=== PATIENT | female | born 1960 | race Native Hawaiian/Other Pacific Islander ===

== ENCOUNTER 2020-07-23 16:20 | Inpatient (IN) | payer BC ==
[~2020-07-23] VITALS: Ht 162.6 cm; Wt 78.2 kg
--- NOTE | 2020-07-23 14:20 | NUR ---
RECIEVED REPORT FROM [facility]. PATIENT ON THE WAY TO FACILITY
[2020-07-23 16:45] VITALS: BP 125/37; TEMP 98.9; Ht 162.6 cm; Wt 78.2 kg
--- NOTE | 2020-07-23 17:00 | NUR ---
PATIENT ARRIVED TO FACILITY. PATIENT SITUATED IN ROOM. NAD NOTED. PATIENT FREE OF PAIN AT THIS TIME.
[2020-07-23] MEDS ORDERED: APIX1TAB PO (17:30)
[2020-07-23] MEDS ORDERED: CYCL10TA35 PO (17:30)
[2020-07-23] MEDS ORDERED: SENNA PLUS 50-81 CAP PO (17:33)
[2020-07-23] MEDS ORDERED: GABA400C2 PO (17:33)
[2020-07-23] MEDS ORDERED: OXYC5TAB24 PO (17:36)
[2020-07-23] MEDS ORDERED: ALBU90AE13 INH (17:37)
[2020-07-23] MEDS ORDERED: AZELASTINE HYDR1 SPR NAS (17:39)
[2020-07-23] MEDS ORDERED: BUPROPION HYDR150 M1 PO (17:41)
[2020-07-23] MEDS ORDERED: BECL80AE NAS (17:41)
[2020-07-23] MEDS ORDERED: NEXIUM40 M1 PO (17:42)
[2020-07-23] MEDS ORDERED: ESTRADIOL10 MCG VAG (17:45)
[2020-07-23] MEDS ORDERED: MONT10TA PO (17:46)
[2020-07-23] MEDS ORDERED: LEVO0.1T6 PO (17:46)
[2020-07-23] MEDS ORDERED: BONIVA150 MG PO (17:47)
--- NOTE | 2020-07-23 17:54 | NUR ---
PT WEARING CAST TO L WRIST, LAST CHANGED TODAY BREAD BAKER, LANG PATH THERAPIST <3 SECS. RT LEG IN SPLINT/WRAPPED FROM FOOT TO MID THIGH, WITH EXTERNAL FIXATOR NOTED TO R FOOT, LANG PATH THERAPIST 3 SECS.. HEALING INCISION NOTED TO L HIP, CLEAN, DRY, NO REDNESS OR DRAINAGE NOTED, SECURED WITH DERMABOND, LANG PATH THERAPIST < 3 SECS. BRUISES NOTED TO L MIRELES AND TO RT TOES. PICC REMOVED FROM RT ARM, 29.2CM.
[2020-07-23 20:09] VITALS: BP 113/45; TEMP 99.5
--- NOTE | 2020-07-23 23:05 | NUR ---
PT. COMPLAINS OF PAIN AND BURNING TO RLE AT THIS TIME. PHYSICIAN NOTIFIED AND ORDERED OXYCODONE 5 MG PO X 1 TAB NOW, NOTED AND CARRIED OUT. MEDICATION ADMINISTERED TO PT. WILL MONITOR FOR THERAPEUTIC RESULTS.
--- NOTE | 2020-07-23 23:08 | NUR ---
PT. CALLED FOR ASSISTANCE TO USE THE BEDPAN AT THIS TIME. PT INDEPENDENTLY ROLLED TO RIGHT SIDE. STAFF PLACED BEDPAN UNDER PT. PT HAD A BOWEL MOVEMENT. STAFF PROVIDED SANITARY WIPES FOR PT'S USE FOR SELF CLEANING. STAFF PROVIDED MINIMAL ASSISTANCE IN CLEANING PT.
--- NOTE | 2020-07-24 04:00 | NUR ---
PT. PUT ON BED HARRIS AT THIS TIME WITHOUT DIFFICULTY BY STAFF. PT USES RIGHT ARM AND HAND TO ASSIST WITH TRANSFERRING ON SIDE WHILE BEDPAN IS PLACED BENEATH. ONCE COMPLETED, PROVIDED PT. WITH SANITARY WIPES FOR SELF CLEANING. PT. REPOSITIONED BACK ON RIGHT SIDE AND BEDPAN REMOVED. PT. TOLERATED WELL. NAD NOTED
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
[2020-07-24 08:00] VITALS: BP 93/60; TEMP 98
--- NOTE | 2020-07-24 13:46 | NUR ---
07/24/20 0750 PHYSICAL THERAPY PRESENT IN ROOM TO ASSIST PT OUT OF BED.CC 07/24/20 0826 SPOKE WITH ASAF ABOUT PT REQUESTS FOR MORE COMFORTABLE BED TO HELP ASSIST WITH COMFORT.CC 07/24/20 0820 SPOKE WITH ANGELA IN PHARMACY CONCERNING SOME OF PATIENT MEDICATIONS THAT HAVE BEEN ORDERED BUT NOT AVAILABLE AT THIS TIME.ANGELA STATES THEY SHOULD COME IN TODAY POSSIBLY.ALSO PT MAY BRING ONE FROM HOME.CC 07/24/20 0945 BED IN PT ROOM CHANGED OUT AT THIS TIME.CC 07/24/20 1015 THERAPY ASSISTED PT BACK TO BED PT IS ABLE ONLY TO HELP MINIMAL LEVEL.CC 07/24/20 1300 PT UA COLLECTED PER STERILE TECHIQUE,PT ASKED TO HAVE INDEWLLING CATHERTER PLACED.TOLD HER STATED SHE CAN START HER BACK ON FLOMAX TO HELP WITH URINARY RETENTION.PT IS IN AGREEMENT WITH THIS.ENCOURAGED PT THAT THE MORE SHE MOVES THIS IS THERAPY AND TAHT IS WHAT WE WANT HER TO DO TO GET STRONGER.CC 07/24/20 1320 PHYSICAL THERAPY IN ROOM TO ASSIST PT TO BEDSIDE COMMODE.PT UNABLE TO HELP VERY MUCH.THERAPY TAUGHT HER HOW TO USE SLIDE BOARD ALSO USING DRAW SHEET.CC 07/24/20 1345 THERAPY ASSITED PT BACK TO BED WITH DRAW SHEET AND SLIDE BOARD.CALL LIGHT WITHIN REACH.PT HAD A SOFT STOOL BROWN IN COLOR.CC
--- NOTE | 2020-07-24 15:33 | NUR ---
07/24/20 1515 PT RESTIN QUEITLY WITH EYES CLOSED PER SISTER AT BEDSIDE.NAD NOTED.CALL LIGHT WITHIN REACH.CC
[2020-07-24 20:00] VITALS: BP 123/42; TEMP 98.4
--- NOTE | 2020-07-24 20:19 | NUR ---
PATIENT CALLED A STAFF MEMBER TO HER ROOM FOR CRACKERS. SAME PROVIDED TO PT. PT REPORTED NEED FOR PAIN MEDICINE AT THIS TIME AND STATED "WE NEED TO KEEP THIS UNDER CONTROL." EMAR REVIEWED BY MEDICAL AUDITOR AND PT WAS ADMINISTERED OXYCODONE 5MG 1 TAB @ 1630 ON THIS DATE. PHYSICIANS ORDER REVIEWED. PATIENT WAS ORDERED TO RECEIVE OXYCODONE 5MG 1 TAB PO Q4 PRN HOURS FOR PAIN.
--- NOTE | 2020-07-24 20:31 | NUR ---
PT IN HIGH FOWLERS POSITION REQUESTING CRACKERS AND A DOSE OF PAIN MEDICATION AT THIS TIME. PT'S LOWER EXTERMITIES ELEVATED ON PILLOWS AT THIS TIME, BED IN LOWEST POSITION, AND CALL LIGHT WITHIN REACH.
--- NOTE | 2020-07-25 00:52 | NUR ---
CALLED FOR PAIN MEDICATIONS AT THIS TIME.
--- NOTE | 2020-07-25 02:08 | NUR ---
PT. WET THE BED AT THIS TIME. BED LINENS WERE CHANGED AT THIS TIME.
--- NOTE | 2020-07-25 07:30 | NUR ---
ENTERED PT'S ROOM, PT IS IN HF AWAKE WITH THE LIGHTS OFF. PT IS A&O AND ABLE TO ANSWER QUESTIONS AND GIVE DETAILS ABOUT CURRENT INJURIES. HEART SOUND IS NORMAL SINUS RHYTHM, PULSES ARE FELT IN RUE AND LLE. ELECTRONICS MANUFACTURER CHECKED FOR CAPILLARY REFILL IN LUE AND RLE DUE TO BANDAGES COVERING PULSE SITES, CAPILLARY REFILL WAS <3 SECS. GI SOUNDS ARE PRESENT IN ALL FOUR QUADRANTS. RIGHT LEG IS ELEVATED ON PILLOWS. PT STATED THAT SHE IS NOT CURRENTLY IN PAIN AND DENIES ANY NEEDS AT THIS TIME.
--- NOTE | 2020-07-25 07:45 | NUR ---
PT ASKED FOR A CUP OF WATER AND HER TOOTHBRUSH AND TOOTHPASTE. AFTER RECIEVING THE ITEMS, PT BRUSHED HER TEETH WITHOUT ANY ASSISTANCE. SUCKER MACHINE OPERATOR GAVE PT TWO WASHCLOTHS, ONE WET AND ONE DRY. PT WASHED HER FACE WITHOUT ANY ASSISTANCE.
[2020-07-25 08:00] VITALS: BP 108/45; TEMP 98.8
--- NOTE | 2020-07-25 08:50 | NUR ---
PT CAME INTO PT'S ROOM, PT ASKED FOR MORPHOLOGIST TO COME TO PT'S ROOM TO OBSERVE THE TRANSFER. PT WAS TRANSFERED FROM THE BED TO THE BEDSIDE COMMODE USE THE SLIDING BOARD. PT SLID TO THE BEDSIDE COMMODE WITH VERY LITTLE ASSISTANCE MORPHOLOGIST HELD HER RT LEG ELEVATED. PT VOIDED 500ML OF URINE. PT TRANSFERRED BACK TO THE BED FROM THE BEDSIDE COMMODE USING THE SLIDING BOARD WITH NO PHYSICAL ASSISTANCE FROM PT JUST SUPERVISION.
--- NOTE | 2020-07-25 11:12 | NUR ---
Patient expressed concern earlier this morning about her ability to tolerate transport to [place] and back on Thursday07/27/[address] appointment [address] Dr. Parry. Offered to call the phone number provided for the physician in the discharge orders to discuss options. Called and spoke to "Tracey", relayed message from patient. Tracey is communicating with Dr. Parry's medical scheduler to see if it is absolutely necessary for patient to go to the appointment in [place] on Thursday or if the doctor would be agreeable to a change of plans. The patient stated that she is stronger today than she was yesterday and possibly could tolerate the visit better if it was rescheduled for the following week. Also asked if the physician would be agreeable to a telehealth visit with her or did he specifically need to see her in person for follow-up. Asked if it would be possible for them to ask Dr. Parry if this center can coordinate her post-op care with him so that the patient doesn't have to travel to [place] right now as it causes her pain to do so. Tracey stated that someone would call us back shortly with a response from Dr. Parry. or would the physician agree to a telehealth visit or speak to physician at this center
--- NOTE | 2020-07-25 11:50 | NUR ---
PT CALLED TO NURSE'S STATION EXPRESSING SHE WAS IN PAIN. RESIDENTIAL YOUTH COUNSELOR WENT TO BEDSIDE WHERE PT WAS LAYING IN LF WITH FACE GRIMACING. PT STATED THAT HER RT LEG AND RIB CAGE WERE BURNING WITH PAIN. PT RATED THE PAIN ON A SCALE OF 0-10 A 9. WAS NOTIFIED AND ORDERS WERE GIVEN TO GIVE THE PRN DOSE OF FLEXARIL, IF THAT DOES NOT WORK ANOTHER ORDER WILL BE PUT IN. PRN DOSE WAS GIVEN AND PT INSTRUCTED TO WAIT A LITTLE WHILE AND IF PAIN DOES NOT EASE UP TO CALL.
--- NOTE | 2020-07-25 12:30 | NUR ---
AN ORDER FOR KETOROLAC 20MG HAS BEEN PUT IN. WENT TO ROOM TO ADMINISTER KETOROLAC, PT IS IN WHEELCHAIR EATING LUNCH. TWO VISITORS ARE AT BEDSIDE. RN ADMIT OBSERVED PT SWALLOWING KETOROLAC WITHOUT ANY DIFFICULTY. NO FURTHER ORDERS AT THIS TIME, WILL CONTINUE TO MONITOR.
--- NOTE | 2020-07-25 15:30 | NUR ---
PT REQUESTED TO BE PUT ON THE BEDPAN. PT WAS PLACED ON THE BEDPAN BY JORGE COBURN CNA. VOIDED 500ML AND HAD SEMI SOLID BM. PT ROLLED WITH NO ASSISTANCE TO BE PLACED ON THE BEDPAN.
--- NOTE | 2020-07-25 17:03 | NUR ---
PT CALLED NURSES STATION REQUESTING A NURSE DUE TO PAIN IN THE RT LEG. PRN DOSE OF FLEXARIL WAS GIVEN. PT WAS EDUCATED THAT SHE CANNOT HAVE PRN OXYCODONE OR PRN KETOROLAC UNTIL AROUND 1800, PT VERBALIZED UNDERSTANDING.
[2020-07-25 20:05] VITALS: BP 125/49; TEMP 98.6
--- NOTE | 2020-07-25 20:22 | NUR ---
ENTERED PATIENT'S ROOM AT THIS TIME. PATIENT SITTING UP IN BED ON LABTOP. TWO VISITORS IN THE ROOM WITH PATIENT. SHE STATES THAT SHE IS OKAY FOR NOW. RESPIRATIONS EVEN AND UNLABORED. NAD NOTED. BED LOCKED AND IN LOWEST POSITION. CALL LIGHT WITHIN EASY REACH.
--- NOTE | 2020-07-25 21:00 | NUR ---
PATIENT RESTING QUIETLY IN BED AT THIS TIME. PM MEDICATIONS GIVEN. THE PATIENT ASKED WHAT SHE WAS TAKING MULTIPLE TIMES. SHE ALSO HAD ME REPEAT THE MEDICATIONS GIVEN TO HER MULTIPLE TIMES. SHE STATES THAT SHE DOES NOT TAKE THE SINGULAIR ON A DAILY BASIS AND REFUSED IT, ALONG WITH HER NASAL SPRAY. TORADOL WAS OFFERED AT THIS TIME- PATIENT DID TAKE THIS. SHE RATED HER CURRENT PAIN 1/10. SHE WAS REQUESTING TO WASH OFF. STATES SHE FEELS STICKY AND SWEATY. I INFORMED HER THAT I WOULD NEED TO GET WITH OUR PCT TO SEE WHEN SHE COULD HELP HER. SHE VERBALIZED UNDERSTANDING. CALL LIGHT WITHIN EASY REACH.
--- NOTE | 2020-07-25 22:10 | NUR ---
IN WITH PCT TO HELP PATIENT WITH BED BATH. PATIENT STATES THAT SHE NEEDS TO HAVE HER PAIN MEDICATION PRIOR TO HAVING A BED BATH. OXYCODONE 5MG GIVEN. BED BATH PERFORMED. LEFT ARM AND RIGHT LEG WRAPPED WITH PLASTIC TO PREVENT WATER FROM DAMAGING MATERIAL. EXTENSIVE ASSISTANCE REQUIRED. PATIENT DID HELP WHEN ABLE. GOWN AND LINENS CHANGED. BED LOCKED AND IN LOWEST POSITION. CALL LIGHT WITHIN EASY REACH.
--- NOTE | 2020-07-26 06:20 | NUR ---
PATIENT RESTING QUIETLY IN BED WITH EYES CLOSED. RLE ELEVATED. RESPIRATIONS EVEN AND UNLABORED. NAD NOTED. 0700 MEDICATIONS TAKEN, INCLUDING OXYCODONE 5MG. NO OTHER CONCERNS OR COMPLAINTS VOICED. BED LOCKED AND IN LOWEST POSITION. CALL LIGHT WITHIN EASY REACH.
[2020-07-26 08:00] VITALS: BP 100/40; TEMP 98
--- NOTE | 2020-07-26 08:00 | NUR ---
PT IS IN LF WITH LIGHTS AND TV OFF, RESTING WITH EYES CLOSED. PT LUNG SOUNDS ARE CLEAR, BREATHING IS EVEN AND NONLABORED. HEART SOUNDS ARE REGULAR AT NORMAL SINUS RHYTHM. PULSES WERE PALPATED IN RUE AND LLE. CAPILLARY REFILL IS <3 SEC IN ALL EXTREMITIES. PT DENIES PAIN OR ANY NEEDS AT THIS TIME.
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
--- NOTE | 2020-07-26 14:10 | NUR ---
PHYSICAL THERAPY IS IN PT'S ROOM. PT HAS BEEN SITTING IN THE WHEELCHAIR FOR 30 MINS. PT WAS TRANSFERRED FROM WHEELCHAIR TO BED USING SLIDING BOARD AND SHEET. 2 MAN ASSIST WAS USED FOR THE TRANSFER. PT DENIES ANY PAIN OR NEEDS AT THIS TIME.
--- NOTE | 2020-07-26 19:50 | NUR ---
ENTERED PATIENT'S ROOM AT THIS TIME. PATIENT RESTING QUIETLY IN BED WATCHING TV. RESPIRATIONS ARE EVEN AND UNLABORED. ENCOURAGED HER TO KEEP RLE AND LUE ELEVATED. MOVE TOES AND FINGERS FREQUENTLY. SHE STATES THAT THE PAIN IN HER RIGHT FOOT IS STARTING TO RETURN AT THIS TIME. I INFORMED HER THAT I WOULD BRING SOMETHING FOR PAIN. NO OTHER CONCERNS VOICED. BED LOCKED AND IN LOWEST POSITION. CALL LIGHT WITHIN EASY REACH.
[2020-07-26 20:08] VITALS: BP 112/35; TEMP 98.3
--- NOTE | 2020-07-26 20:22 | NUR ---
2021- IN TO GIVE PATIENT PM MEDICATIONS, INCLUDING TORADOL. 2099- WHILE GIVING PM MEDICATIONS, A BOX OF MUCINEX WAS ON PATIENT'S BEDSIDE TABLE. I ASKED PATIENT ABOUT THIS. SHE STATES THAT SHE TAKES IT ON AN -NEEDED BASIS FOR CONGESTION. I EXPLAINED TO HER THAT PER OUR POLICY, PATIENT'S ARE NOT TO HAVE MEDICATIONS IN THE ROOM. THIS COULD LEAD TO TAKING TOO MUCH OF THE SAME MEDICINE OR POSSIBLE INTERACTIONS. INFORMED HER THAT I WOULD NEED TO LABEL IT AND PUT IT IN OUR MED ROOM UNTIL SHE IS DISCHARGED. I DID TELL HER ALSO THAT I WOULD PASS THIS ON TO THE NEXT SHIFT, SO THEY COULD TALK TO THE HOSPITALIST ABOUT ORDERING THIS PRN. SHE STATES, "WELL IF YOU JUST PUT IT IN MY BAG OVER THERE, YOU CAN ACT LIKE YOU DIDN'T SEE IT." I TOLD HER THAT I COULDN'T DO THAT. I AGAIN EXPLAINED TO HER THAT THIS IS A POLICY FOR ALL PATIENTS, AND THE MD MAY BE WILLING TO ORDER IT FOR HER TOMORROW. SHE WAS UPSET BUT DID VERBALIZE UNDERSTANDING. MUCINEX LABELED WITH PATIENT'S STICKER AND PLACED IN MED ROOM.
--- NOTE | 2020-07-27 05:15 | NUR ---
IN TO CHECK ON PATIENT. SHE IS RESTING QUIETLY IN BED WITH EYES CLOSED. ENCOURAGED HER TO USE THE BEDPAN- SHE STATES THAT SHE DOES NOT FEEL THE URGENCY TO GO RIGHT NOW. 900CC OF DARK YELLOW URINE NOTED. SHE DENIES PAIN AT THIS TIME, BUT SHE DOES WANT PAIN MEDICATION WITH HER 0700 MEDS. BED LOCKED INTO LOWEST POSITION. CALL LIGHT WITHIN EASY REACH.
--- NOTE | 2020-07-27 06:15 | NUR ---
IN TO GIVE 0700 MEDS. NO OTHER CONCERNS VOICED FROM PATIENT. SHE IS RESTING QUIETLY IN BED WATCHING TV. NAD NOTED. CALL LIGHT WITHIN EASY REACH.
[2020-07-27 08:00] VITALS: BP 122/45; TEMP 98.3
--- NOTE | 2020-07-27 16:49 | NUR ---
PATIENT HAS AN APPT ON ThursdayJULY 30, AT 10:30AM IN [place]. LARRY WILL BE HERE AROUND 8:15 AM TO PICK THE PATIENT UP FOR APPOINTMENT.
--- NOTE | 2020-07-27 19:45 | NUR ---
AT PT'S BEDSIDE AT THIS TIME. PT IS SITTING UP IN A LOW FOWLERS POSITION AT THIS TIME AND IS RESPONSIVE TO VERBAL STIMULI. NAD NOTED AT THIS TIME. CALL LIGHT WITHIN REACH AND BED LOCKED IN LOWEST POSITION WITH SIDE RAILS UP TIMES TWO.
[2020-07-27 20:10] VITALS: BP 119/52; TEMP 98
--- NOTE | 2020-07-27 20:34 | NUR ---
PT COMPLAINS OF BURNING RIGHT LOWER EXTREMITY PAIN AT THIS TIME. PRN MED TORADOL 10 MG GIVEN AT THIS TIME. WILL FURTHER ASSESS FOR MEDICATION EFFECTIVNESS ACCORDINGLY.
--- NOTE | 2020-07-27 21:20 | NUR ---
IN TO GIVE PM MEDS AT THIS TIME. PT. TOLERATED WELL. NAD NOTED AT THIS TIME. EDUCATED ON IMPORTANCE OF INCENTIVE SPIROMETER USAGE. PT VERBALIZED UNDERSTANDING AND GOT UP TO 2500.
--- NOTE | 2020-07-28 03:30 | NUR ---
PT IS SLEEPING QUIETLY AND COMFORTBALY AT THIS TIME WITH SIDE RAILS UP, BED IN LOWEST POSITION, RIGHT LOWER EXTERMITY ELEVATED WITH CALL LIGHT WITHIN REACH AT THIS TIME. NAD NOTED.
[2020-07-28 08:00] VITALS: BP 110/38; TEMP 98
--- NOTE | 2020-07-28 08:51 | NUR ---
ASSISTED PT WITH GETTING OFF OF THE BEDPAN, PT TURNED HERSELF TO THE RT WITH NO ASSISTANCE, BEDPAN REMOVED, I ASSISTED PT WITH WIPING, PT THEN MANUEVERED HERSELF AND HER HOB BACK TO REGULAR POSITION, NAD NOTED, PT HAS NO FURTHER NEEDS AT THIS TIME, WILL CONTINUE TO MONITOR, CALL LIGHT IS WITHIN REACH
--- NOTE | 2020-07-28 12:59 | NUR ---
Swing Bed patient and talked with Shahnaz yesterday about the patient and per the patient is pleased with all meals. Patient is to go to [place] and discussed the traveling issues. Maya PAGE's recommendations nad POC. Talk weekly with the Care Plan Team.
[2020-07-28 20:00] VITALS: BP 104/67; TEMP 98.4
[2020-07-28 20:46] VITALS: BP 101/41; TEMP 98.5
--- NOTE | 2020-07-28 21:25 | NUR ---
IN TO GIVE PM MEDS AT THIS TIME. PT TOERATED WELL IN A HIGH FOWLERS POSITION WITH BED IN LOWEST POSITION AND RIGHT LOWER EXTREMITY ELEVATED. PT USED INCENTIVE SPIROMETER AND PT WAS ABLE TO GET UP TO 2000 ON THE VOLUME.
--- NOTE | 2020-07-28 22:12 | NUR ---
PT. COMPLAINS OF RIGHT LOWER EXREMITY PAIN. OXYCODONE 5 MG GIVEN AT THIS TIME.
--- NOTE | 2020-07-29 04:20 | NUR ---
PT IS RESTING QUIETLY IN SUPINE POSITION WITH BED IN THE LOWEST POSITION AND SIDE RAILS UP TIMES TWO AND RIGHT LOWER EXTREMITY ELEVATED.
[2020-07-29 08:00] VITALS: BP 113/35; TEMP 98.5
--- NOTE | 2020-07-29 08:30 | NUR ---
PT'S TRAY WAS BROUGHT IN. PT IS ABLE TO SET UP HER OWN TRAY. PT NEEDED ASSISTANCE IN OPENING MILK CARTON AND ENSURE BOTTLE. PT ALSO STATED THAT WITH HER MORNING MEDS SHE DID NOT WANT THE MULTIVITAMIN INCLUDED BECAUSE IT MADE HER FEEL SICK YESTERDAY. PT WAS EDUCATED ON THE IMPORTANCE TO EAT WHEN TAKING MEDICATIONS BECAUSE THEY CAN IRRITATE THE STOMACH OTHERWISE.
--- NOTE | 2020-07-29 09:31 | NUR ---
ENTERED PT'S ROOM FOR MORNIGN ASSESSMENT. PT IS RESTING IN LF. HEART SOUNDS ARE PRESENT AND NORMAL SINUS RHYTHM. LUNG SOUNDS ARE CLEAR IN ALL LOBES. PT STATED THAT SHE CAN GET THE INCENTIVE SPIROMETER TO AT LEAST 2500. PULSES WERE PALPATED IN THE RUE AND LLE. CAPILLARY REFILL WAS CHECKED IN THE LUE AND RLE, BOTH WERE <3 SECS. GASTRIC SOUNDS WERE PRESENT IN ALL FOUR QUADRANTS. PT DENIES ANY PAIN OR NEEDS AT THIS TIME.
--- NOTE | 2020-07-29 10:00 | NUR ---
PT CALLED TO BE PUT ON THE BEDPAN. PT ASSISTED WITH BEING PUT ON THE BEDPAN, ABLE TO GRAB ONTO THE SIDERAIL WITH LEFT ARM TO ROLL. PT HAD A SMALL BM AND VOIDED 1000 ML OF URINE.
--- NOTE | 2020-07-29 13:29 | NUR ---
ASSISTED PT ONTO BEDPAN. PT ABLE TO ROLL USING LEFT ARM TO HOLD ONTO SIDERAIL. PT CAN ALSO LIFT HIPS USING LT LEG. PT VOIDED 650 ML OF URINE AND HAD A BM.
--- NOTE | 2020-07-29 19:55 | NUR ---
PT. IS IN A LOW-FOWLERS POSITION WITH SIDE RAILS UP TIMES TWO AND RIGHT LOWER EXTREMITIES FLOATED AND ELEVATED AT THIS TIME WITH CALL LIGHT WITHIN REACH.
[2020-07-29 20:19] VITALS: BP 105/40; TEMP 98.2
--- NOTE | 2020-07-29 21:25 | NUR ---
PM MEDS GIVEN AT THIS TIME. TORADOL PRN MEDICATION ALSO GIVEN AT THIS TIME BECAUSE PT COMPLAINED OF RIGHT LOWER EXTREMITY PAIN. PT RESPONDS WELL TO VERBAL STIMULI AT THIS TIME AND EDUCATED PT. ON MEDICATION LIST. CALL LIGHT WITHIN REACH.
--- NOTE | 2020-07-29 22:37 | NUR ---
OXYCODONE 5 MG GIVEN AT THIS TIME FOR RIGHT LOWER EXTREMITY PAIN
[2020-07-30 05:19] LABS: POTASSIUM 4.2 mmol/L (3.6-5.2)
[2020-07-30 08:00] VITALS: BP 120/45; TEMP 97.9
--- NOTE | 2020-07-30 08:43 | NUR ---
OXYCODONE 5MG AND CYCLOBENZAPRINE 10 MG WAS GIVEN TO PT'S SISTER BY PROGRAM MANAGER RN TO TAKE TO DOCTOR'S APPT IN [place] FOR PAIN PRN. PROGRAM MANAGER RN RECIEVED THE OK BY DR. CASANOVA TO DO SO.
[2020-07-30 20:00] VITALS: BP 113/42; TEMP 98.8
--- NOTE | 2020-07-30 22:53 | NUR ---
PT RESTING IN HIGH FOWLERS AT THIS TIME WITH NO DISTRESS PRESENT. ALERT AND ORIENTED WITH C/O MILD PAIN PRESENT. PRN MEDICATION GIVEN TO ALLEVIATE PAIN, WILL CONTINUE TO MONITOR FOR HEALTH STATUS CHANGES.
[2020-07-31 07:55] VITALS: BP 112/48; TEMP 98.5
--- NOTE | 2020-07-31 09:21 | NUR ---
I called pts ortho Dr. Parry [phone] this am to see if they had the "pin care sheet" that the prescriptions of supplies for the wound care referred to. I did ask patient if she had any additional paperwork from her appointment yesterday, she stated she would ask her sister, Rebeca, who was not present at this time. Dr. Parry's offie stated they would email the medical assistant dermatology and she would check with Dr. Parry because his progress note was not available yet. I gave her my office number and fax and asked her to call the nurses station x [phone] if i did not answer the phone.
[2020-07-31 20:00] VITALS: BP 114/41; TEMP 98.7
--- NOTE | 2020-07-31 20:42 | NUR ---
NIGHTLY PO MEDS GIVEN PT TOLERATED WITH NO PROBLEMS BUT DID NOT WANT SINGULAIR STATES SHE ONLY TAKES IT EVERY OTHER NIGHT THAT IT 'DRIES ME OUT TOO MUCH". DRANK PROTEIN SUPPLEMENT WITH ORANGE JUICE PER REQUEST. ASSISTED PT TO ROLL TO R SIDE AND GET ON BEDPAN. PT URINATED 400ML CLEAR YELLOW URINE, PT DID HOLD RAILS WHEN ROLLING AND ROLLED TO SIDE WITH NO ASSIST CROCHET MACHINE OPERATOR HAD TO JUST PLACE BEDPAN THEN ONCE FINISHED PT WIPED HER FRONT PER SELF THEN CROCHET MACHINE OPERATOR WIPED PT BOTTOM, ADJUSTS HOB PER SELF AND IS NOW IN HIGH CHESTER'S POSITION IN BED. STATES HER PAIN IS DOING BETTER SINCE PRN MEDICATION GIVEN, NO S/S OF PAIN OR DISTRESS NOTED, ENCOURAGED TO CALL NEEDED, CALL LIGHT IN REACH, BED IN LOW POSITION, RAILS UP. PT TALKATIVE WITH CROCHET MACHINE OPERATOR.
--- NOTE | 2020-07-31 21:00 | NUR ---
TOOK PT'S HOME MED IBANDRONATE 150MG TAB(1 INDIVIDUALLY WRAPPED TAB LEFT IN BOX LABLED WITH PT'S NAME AND DRUG INFO) PLACED AT BEDSIDE, PT STATES SHE IS DUE FOR PILL(USUALLY TAKES OR 16 OF MONTH) BUT HAD TO WAIT ON FAMILY TO BRING MEDICATION TO HOSPITAL. BOX WITH PILL GIVEN TO PRIVATE CLIENT ADVISOR AT SHIFT CHANGE BY DAY SHIFT NURSE WHO INFORMED IT COULD BE KEPT AT BEDSIDE. INFORMED PT PRIVATE CLIENT ADVISOR WOULD HAVE TO SEE IF ORDER FOR MED EXISTED AND FOR HER TO HOLD OFF ON TAKING MEDICATION(STATES WANTS TO TAKE MED IN MORNING ON EMPTY STOMACH LIKE SHE DOES ONCE MONTHLY AT HOME). INFORMED PT TO PRIVATE CLIENT ADVISOR LOOK INTO MEDICATION ORDER BEFORE GIVING IT. PT ACKNOWLEDGES UNDERSTANDING.
--- NOTE | 2020-07-31 22:30 | NUR ---
PT AWAKE TALKING ON PHONE WITH FAMILY, DENIES ANY NEEDS, WILL MONITOR CLOSELY, RAILS UP, CALL LIGHT IN REACH.
--- NOTE | 2020-08-01 01:15 | NUR ---
RESTING IN POSITION OF COMFORT IN BED WITH EYES CLOSED, NO S/S OF PAIN OR DISTRESS NOTED, CAST INTACT TO L ARM, R LEG ON PILLOW, WILL MONITOR CLOSELY, RAILS UP X3, CALL LIGHT IN REACH.
--- NOTE | 2020-08-01 02:50 | NUR ---
GIVEN OXYCODONE 5MG PO PRN FOR C/O INTERMITTEN PAIN TO R KNEE AND HEEL THAT IS A "5 OR 6" ON SCALE. STATES BRACE THAT WAS PLACED BACK ON HER R LEG DID HELP WITH PAIN SOME(PUT ON PT ON DAY SHIFT). WILL MONITOR CLOSELY, RAILS UP, BED IN LOW POSITION, CALL LIGHT IN REACH, ENCOURAGED TO CALL NEEDED.
--- NOTE | 2020-08-01 02:52 | NUR ---
PT AWAKE CALLED FOR ASSIST TO GET ON BEDPAN. NO ACUTE DISTRESS NOTED.
--- NOTE | 2020-08-01 03:30 | NUR ---
PT CALLED FOR PRN PAIN MEDICATION. C/O CONSTANT "THROBBING" PAIIN TO R KNEE THAT IS A "5 OR 6" ON SCALE. OXYCODONE 5MG PLACED IN MED CUP TO GIVE TO PT MARBLE AND GRANITE POLISHER ACCIDENTLY DROPPED MEDICATION ON FLOOR, CHARGE NURSE NIC FUNES RN WITNESSED MARBLE AND GRANITE POLISHER WASTE PILL AND GET ANOTHER PILL. PT GIVEN MED AT 0334, DENIES ANY OTHER NEEDS OR NEED TO HELP REPOSITION IN BED. WILL MONITOR CLOSELY, RAILS UP, BED IN LOW POSITION, CALL LIGHT IN REACH.
--- NOTE | 2020-08-01 04:15 | NUR ---
RESTING WITH EYES CLOSED, NO S/S OF PAIN OR DISTRESS NOTED, WILL MONITOR.
--- NOTE | 2020-08-01 05:30 | NUR ---
SPOKE WITH PHARM-D ABOUT PT'S HOME MED IBANDRONATE 150MG THAT PT TAKES MONTHLY AROUND 15TH OR 16TH PER PT, PT ALSO STATES SHE NEEDS MED FOR THIS MONTH. INFORMED PHARM-D WAS ORDER FOR MED ON 07/24/20 BUT NANNY/HOUSEHOLD MANAGER THOUGHT MEDICATION WAS NOT AVAILABLE FROM HOME AT THAT TIME AND NOW MED IS AVAILABLE. PHARM-D STATES TO NOT GIVE MED AND THEY WILL LEAVE NOTE FOR REMOTE PHARMACY. 0630 ENTERED ROOM TO TALK WITH PT ABOUT HOME MED IBANDRONATE AND TO EXPLAIN WHAT PHARM-D ADVISED. PT STATES SHE HAD JUST TAKEN MEDICATION. MEDICATION WAS LAST PILL IN BOX WITNESSED BY NANNY/HOUSEHOLD MANAGER AND DAY SHIFT YESTERDAY. NANNY/HOUSEHOLD MANAGER ADVISED DURING REPORT LAST NIGHT BY 7AM-7PM NURSE THAT MED COULD BE KEPT AT BEDSIDE AND NANNY/HOUSEHOLD MANAGER GIVEN LABELED BOX WITH MED IN IT(INDIVIDUAL PILL IN FOIL PACKAGE INDIVIDUALLY WRAPPED). CHARGE NURSE INFORMED.
[2020-08-01 08:00] VITALS: BP 132/47; TEMP 97.9
--- NOTE | 2020-08-01 08:50 | NUR ---
PT AT BEDSIDE. PATIENT REFUSED TO BE TRANSFERRED TO WHEELCHAIR. SHE STATED THAT SHE WAS TOO COLD. WE ADJUSTED THE TEMP OF HER ROOM. WE ASSURED HER THAT WE COULD COVER HER WITH BLANKETS IN THE WHEELCHAIR. PATIENT STILL REFUSED AND ASKED PT TO COME BACK LATER. CASE MANAGEMENT NOTIFIED.
--- NOTE | 2020-08-01 10:00 | NUR ---
PATIENT CALLED FOR PAIN MEDICATION. PATIENT STATED THAT PAIN WAS AN 8 OUT OF 10. PRN OXYCODONE GIVEN PER MD ORDERS.
--- NOTE | 2020-08-01 10:30 | NUR ---
PATIENT REQUESTING TO USE BEDPAN. PATIENT VOIDED AND HAD A BOWEL MOVEMENT. PATIENT TOLERATED TRANFER ON AND OFF BEDPAN WELL.
--- NOTE | 2020-08-01 12:22 | NUR ---
PT AT BEDSIDE. PT TRANSFERRED TO WHEELCHAIR. PT WHEELED PATIENT OUTSIDE.
--- NOTE | 2020-08-01 16:48 | NUR ---
TVO RECEIVED TO REMOVE 4 SUTURES FROM PATIENT'S UPPER RIGHT LOWER EXTREMITY. SITE CLEANED WITH NORMAL SALINE. 4 SUTURES REMOVED WITH SITE INTACT. SITE CLEANED WITH NORMAL SALINE. NAD NOTED AND PATIENT TOLERATED WELL. WILL CONTINUE TO MONITOR SITE FOR INFECTION.
--- NOTE | 2020-08-01 20:05 | NUR ---
AT PT'S BEDSIDE. PT REQUESTED TO USE THE BEDSIDE HARRIS. PT HAD A MODERATE FORMED BOWEL MOVEMENT AT THIS TIME IN THE BEDPAN. PT ALSO REQUESTED PRN PAIN MEDICATION DUE TO RIGHT LOWER EXTREMITY PAIN.
--- NOTE | 2020-08-01 20:10 | NUR ---
PT SITTING UP IN A HIGH-FOWLERS POSITION, ALERT AND ORIENTED, BED IN LOWEST POSITION AND RIGHT LOWER EXTEMITY ELEVATED. TORADOL 10 MG GIVEN AT THIS TIME. PT TOLERATED WELL AND RESPONDED WELL TO VERBAL STIMULI AT THIS TIME.
[2020-08-01 20:13] VITALS: BP 106/46; TEMP 98.7
--- NOTE | 2020-08-01 20:49 | NUR ---
PM MEDICATION ADMINISTERED AT THIS TIME. PT TOLERATED WELL.
--- NOTE | 2020-08-02 03:30 | NUR ---
PT. RESTING QUIETLY AT THIS TIME WITH SIDE RAILS UP TIMES TWO AND BED IN LOWEST POSITION. NO NAD NOTED.
[2020-08-02 08:00] VITALS: BP 115/41; TEMP 98.3
--- NOTE | 2020-08-02 08:26 | NUR ---
PCT NOTIFIED INDUSTRIAL MECHANIC OF RASH IN GROIN AREA. DR. COBURN NOTIFIED.
--- NOTE | 2020-08-02 10:48 | NUR ---
LATE ENTRY 08/01/201939: PIN SITE CARE PROVIDED AT THIS TIME. HIBICLENS USED AROUND EACH PIN SITE WITH 4X4 GAUZE AND COTTON TIP APPLICATOR. SMALL DRY YELLOWISH/BLOOD CRUST REMOVED FROM AROUND THE PIN SITE. PATIENT TOLERATED WELL.
--- NOTE | 2020-08-02 19:50 | NUR ---
PT. SITTING UP IN A HIGH-FOWLERS POSITION WITH SIDE RAILS UP TIMES TWO AND BED IN LOWEST POSITION.
[2020-08-02 20:19] VITALS: BP 125/45; TEMP 98.4
--- NOTE | 2020-08-03 07:30 | NUR ---
IN PT'S ROOM FOR ASSESSMENT. IN REPORT THIS MORNING IT WAS STATED THAT THE PT DID NOT RECIEVE ANY PRN PAIN MEDS THROUGHOUT THE NIGHT. PT DENIES ANY PAIN AT THIS TIME. IT WAS ALSO SAID THAT PT IS STRUGGLING WITH DEPRESSION AT THIS TIME. WHEN PT WAS ASKED ABOUT DEPRESSION SHE STATED THAT SHE DOES TAKE WELLBUTRIN BUT IT MIGHT NOT HURT TO DO SOMETHING EXTRA SINCE SHE CRIES EVERY DAY BECAUSE SHE IS TIRED OF BEING IN THE HOSPITAL. MD WILL BE CONTACTED ABOUT PT'S CONCERN.
[2020-08-03 08:00] VITALS: BP 115/45; TEMP 98.1
--- NOTE | 2020-08-03 09:00 | NUR ---
IN PT'S ROOM PASSING MORNING MEDS, PT HAS EATEN 75% OF HER BREAKFAST WITH NO ASSISTANCE NEEDED. PT STATED THAT THE CUSHION THAT HER SISTER BROUGHT HER YESTERDAY TO USE ON THE BED HAS BECOME UNCOMFORTABLE AND SHE WOULD LIKE IT REMOVED. PT WAS ABLE TO ROLL IN THE BED WITHOUT ASSISTANCE WHILE SYNCHRONOUS MOTOR ASSEMBLER AND CHAIN MENDER REMOVED THE CUSHION AND REPLACED THE SHEETS ON THE BED. MEDS WERE GIVEN INCLUDING THE PRN DOSE OF OXYCODONE AT THE REQUEST OF THE PT DUE TO PREPARING FOR THERAPY THIS MORNING. TOPICAL CREAM WAS APPLIED TO THE REDDENED AREAS IN THE PERINEAL AREA. PT BED WAS PLACED IN THE LOWEST POSITION WITH HOB ELEVATED AND CALL LIGHT WITHIN REACH. PT DENIES ANY OTHER NEEDS AT THIS TIME.
--- NOTE | 2020-08-03 09:45 | NUR ---
DR. COBURN HAS BEEN CONTACTED ABOUT PT'S CONCERNS OF DEPRESSION.
--- NOTE | 2020-08-03 10:16 | NUR ---
PT WAS PLACED ON BEDPAN WITH ASSISTANCE OF CONTOUR SANDER. PT ROLLED HERSELF ONTO HER SIDE SO BEDPAN COULD BE PLACED UNDERNEATH HER. PT HAD BOWEL MOVEMENT AND URINATED 700ML. PT DENIES ANY PAIN/NEEDS AT THIS TIME.
--- NOTE | 2020-08-03 15:00 | NUR ---
PT RECIEVED A BED BATH FROM ROUTE VENDING MACHINE SERVICER AND SECTION SUPERVISOR. PT TOLERATED BATH WELL. BED LINENS WERE CHANGED AND A NEW GOWN PUT ON. PT WAS ABLE TO ROLL HERSELF TO EACH SIDE IN ORDER TO BE BATHED. SHOWER CAP WAS USED TO WASH PT'S HAIR. PT STATED THAT SHE FELT MUCH BETTER AFTER BEING BATHED. PT IS NOW IN LF RESTING WITH CALL LIGHT WITHIN REACH.
--- NOTE | 2020-08-03 15:51 | NUR ---
PT RECIEVED WOUND CARE TO THE EXTERNAL FIXATOR. HIBICLENS WAS APPLIED TO EACH PIN WOUND AREA WITH A COTTON APPLICATOR. HIBICLENS WAS USED ALONG WITH A 4X4 TO CLEAN EACH PIN. LOTION WAS APPLIED TO THE DRY SKIN ON THE RIGHT LOWER EXTREMITY PER PATIENT REQUEST, AWAY FROM PIN SITES. PT IS SHOWING NAD AT THIS TIME.
--- NOTE | 2020-08-03 20:00 | NUR ---
ENTERED PATIENT'S ROOM. AT BEDSIDE. PATIENT LYING IN BED WATCHING TV. LUE AND RLE ELEVATED. SHE DENIES ANY PAIN OR CONCERNS. BED LOCKED AND IN LOWEST POSITION. CALL LIGHT WITHIN EASY REACH.
[2020-08-03 20:08] VITALS: BP 121/47; TEMP 98.2
--- NOTE | 2020-08-03 21:00 | NUR ---
PATIENT LYING IN BED WATCHING TV. SHE STILL DENIES ANY PAIN. C/O SWELLING OF LUE. INSTRUCTED TO ELEVATE LEFT ARM MUCH POSSIBLE AND CONTINUE TO MOVE HER FINGERS OF THAT HAND WELL. SHE DID REQUEST TO TAKE OXYCODONE AT THIS TIME TO HELP HER REST. STATES SHE CAN'T GET COMFORTABLE AT THIS TIME. OXYCODONE GIVEN. BED LOCKED AND IN LOWEST POSITION. SR UP X2. CALL LIGHT WITHIN EASY REACH.
--- NOTE | 2020-08-03 22:30 | NUR ---
PATIENT REQUESTING TO PUT MATTRESS PAD ON HER BED. SHE IS STILL UNABLE TO REST WELL. MATTRESS PAD PLACED ON HER BED. LINENS CHANGED AND ADJUSTED. NO OTHER CONCERNS VOICED AT THIS TIME. PATIENT RESTING QUIETLY IN BED. CALL LIGHT WITHIN REACH.
--- NOTE | 2020-08-04 00:30 | NUR ---
PATIENT CALLED REQUESTING FLEXERIL. STATES SHE IS STILL UNABLE TO SLEEP WELL. FLEXERIL GIVEN. RESTING QUIETLY IN BED NOW. NAD NOTED. CALL LIGHT WITHIN REACH.
[2020-08-04 08:00] VITALS: BP 105/60; TEMP 97.8
--- NOTE | 2020-08-04 08:42 | NUR ---
Charisse is in the SWING BED PROGRAM and I talked with Shahnaz the SWING BeD COORDINATOR. Patient is depressed and MD is going to adjust her medications. Patient does not like cucumbers and likes salads and family is bringing foods as well. FSD met with patient and documented her food preferences and so noted on the diet card and food preferences are honored and seems to be better pleased with meals. Has been receiving a strawberry supplement and likes vanilla and chocolate and does not likes strawberry so this has been corrrected.
--- NOTE | 2020-08-04 12:00 | NUR ---
PT'S DAUGHTER HERE AT THIS TIME TO ASSIST PT WITH COLORING, WASHING AND CUTTING HER HAIR.
--- NOTE | 2020-08-04 14:26 | NUR ---
PT ASSISTED TO W/C WITH SLIDING BOARD X2 PERSON ASSIST. PT SITTING UP ON SIDE OF BED WITH BRACE ON RLE UPON ENTERING PT'S ROOM. W/C AT PT'S BEDSIDE. SLIDING BOARD PLACE UNDER PT'S RIGHT HIP WITH DRAW SHEET STILL IN PLACE. PT REACHED OVER TO W/C WITH HER RIGHT HAND AND BEGAN SCOOTING ACROSS SLIDING BOARD WITH ME PULLING THE DRAW SHEET TO ASSIST HER WITH SCOOTING. PT'S DAUGHTER REMOVED SLIDING BOARD FROM UNDER PT'S LEFT HIP AT THIS TIME. PT ASSISTED BY ME AND HER DAUGHTER WITH DRAW SHEET TO SLIDE BACK IN THE W/C. W/C LEGS PLACED ON W/C. PTS RLE PLACED ON A PILLOW ON THE LEG REST. PT'S DAUGHTER REMAINS IN ROOM TO CUT PT'S HAIR WHILE SHE IS IN THE W/C. PT'S BE LINENS CHANGED AT THIS TIME.
--- NOTE | 2020-08-04 16:53 | NUR ---
IN PT RM WITH JAVIER MAS LPN TO PERFORM WOUND CARE TO EXTERNAL FIXATOR, PT LYING IN LF, SKIN AT PIN SITES CLEANED WITH HIBICLENS AND COTTON TIP APPLICATOR, PIN SITES CLEANED WITH HIBICLENS APPLICATOR, PT TOLERATED WELL, NO FURTHER NEEDS AT THIS TIME
[2020-08-04 20:00] VITALS: BP 141/52; TEMP 98.2
--- NOTE | 2020-08-04 21:40 | NUR ---
PT ROLLED SIDE TO SIDE USING BED RAILS WHILE PT CHANGED DRAW SHEET PER PT REQUEST. ALSO GAVE WET CLOTH TO PT PER REQUEST FOR HER TO CLEAN HER FRONT AND ADOPTION SPECIALIST CLEANED HER BOTTOM WHILE PT ROLLED TO HER R SIDE. R FOOT/LEG ON PILLOW WITH NO ACUTE PROBLEMS NOTED TO SITE, EXTERNAL FIXATOR INTACT. WILL MONITOR CLOSELY, RAILS UP, BED IN LOW POSITION, CALL LIGHT IN REACH.
--- NOTE | 2020-08-04 22:12 | NUR ---
SPOKE WITH ER DOCTOR DR. MURILLO PT C/O GAS AND STATES THAT SHE THINKS TUMS HAD HELPED IT BEFORE. NEW ORDER VIA TELEPHONE FOR MAALOX 30ML PO Q 8 HOURS PRN. T. O. R&V DR. MURILLO/RHETT VINES RN.
--- NOTE | 2020-08-04 23:20 | NUR ---
PT RESTING IN POSITION OF COMFORT WITH EYES CLOSED, NO S/S OF PAIN OR DISTRESS NOTED, AROUSES BRIEFLY AND DENIES ANY PROBLEMS. BROUGHT PT ENSURE PER REQUEST. WILL MONITOR CLOSELY, RAILS UP X3, BED IN LOW POSITION, CALL LIGHT IN REACH. R FOOT/LEG ON PILLOW, CAST DRY AND INTACT TO L LOWER ARM.
--- NOTE | 2020-08-05 02:01 | NUR ---
PT LEASING MANAGER ASSISTED PT TO USE BEDPAN AT THIS TIME. NO ACUTE DISTRESS NOTED.
[2020-08-05 08:00] VITALS: BP 133/73; TEMP 98.5
--- NOTE | 2020-08-05 15:00 | NUR ---
PT RECIEVED A BED BATH BY JORGE COBURN CNA. PT'S BED LINENS WERE CHANGED. PT TOLERATED BATH WELL.
--- NOTE | 2020-08-05 17:30 | NUR ---
PT RECIEVED WOUND CARE TO EXTERNAL FIXATOR WITH HIBACLENSE AND Q-TIPS. NO DRAINAGE, REDNESS, OR SWELLING NOTED. PT FELT NO PAIN DURING WOUND CARE.
[2020-08-05 20:08] VITALS: BP 137/53; TEMP 98.1
--- NOTE | 2020-08-05 21:30 | NUR ---
GAVE PT NIGHTLY MEDS, TOOK WITH ONLY SET UP HELP. ALSO GAVE PT PRN TORADOL 10MG PO PRN FOR C/O PAIN TO L HAND HAND SWOLLEN AND ELEVATED ON PILLOW, SKIN TO L HAND WARM TO TOUCH AND COLOR NORMAL. WILL MONITOR, RAILS UP, BED IN LOW POSITION, CALL LIGHT IN REACH.
--- NOTE | 2020-08-05 22:25 | NUR ---
PT RESTING WITH EYES CLOSED, NO S/S OF PAIN OR DISTRESS NOTED.
--- NOTE | 2020-08-06 01:04 | NUR ---
RESTING WITH EYES CLOSED, NO S/S OF PAIN OR DISTRESS NOTED, CAST INTACT TO L LOWER ARM WITH ARM ELEVATED ON PILLOW TO HELP WITH SWELLING IN HAND, RESP RATE NONLABORED ON ROOM AIR, EXTERNAL FIXATOR INTACT TO R LOWER LEG/FOOT FOOT ELEVATED ON PILLOW, WILL MONITOR CLOSELY, RAILS UP X3, BED IN LOW POSITION, CALL LIGHT IN REACH. NOTE PT MOVES AROUND/REPOSITIONS IN BED MOST OF THE TIME WITH SET UP HELP ONLY.
--- NOTE | 2020-08-06 05:30 | NUR ---
PT CALLED NEEDING BEDPAN. PT LOWERED HOB AND ROLLED TO SIDE WITH PILLOW BETWEEN LEGS, HEADLIGHT ASSEMBLER PLACED BEDPAN UNDER PT AND PT ELEVATED HOB HEADLIGHT ASSEMBLER HELPED ADJUST BEDPAN UNDER PT ONCE HOB WAS ELEVATED. NOTE PT URINATED 700ML CLEAR YELLOW URINE. PT WIPED HERSELF AND ALSO HEADLIGHT ASSEMBLER WIPED PT'S BOTTOM. PT NOW SITTING UP IN BED BRUSHING HER TEETH WITH ONLY SET UP HELP WHEN HEADLIGHT ASSEMBLER BROUGHT TOOTH BRUSH AND TOOTHPASTE TO PT. ENCOURAGED TO CALL NEEDED, RAILS UP, BED IN LOW POSITION, CALL LIGHT IN REACH.
[2020-08-06 06:04] LABS: POTASSIUM 4.1 mmol/L (3.6-5.2)
[2020-08-06 08:00] VITALS: BP 136/56; TEMP 98.4
--- NOTE | 2020-08-06 18:30 | NUR ---
PIN SITE CARE COMPLETED PER MD ORDERS. PATIENT TOLERATED WELL. NAD NOTED.
[2020-08-06 19:54] VITALS: BP 128/55; TEMP 98.4
--- NOTE | 2020-08-06 20:50 | NUR ---
PT SITTING UP WATCHING TV AT THIS TIME IN A HIGH-FOWLERS POSITION AT THIS TIME. NO NAD NOTED. PT RESPONSIVE TO VERBAL STIMULI.
[2020-08-07 07:54] VITALS: BP 140/61; TEMP 97.9
--- NOTE | 2020-08-07 09:30 | NUR ---
THERAPY AT BEDSIDE TO ASSIST PCT AND PT TO SHOWER. PATIENT TOOK A SHOWER WITH ASSISTANCE. PATIENT TOLERATED WELL. PATIENT TRANSFERRED BACK TO BED. WILL CONTINUE TO MONITOR.
--- NOTE | 2020-08-07 10:00 | NUR ---
PIN SITE CARE COMPLETED. PATIENT TOLERATED WELL. NAD NOTED.
--- NOTE | 2020-08-07 11:30 | NUR ---
PATIENT CALLED NURSE'S STATION ASKING FOR A COLD WASHCLOTH. PATIENT VOMITED IN TRASH CAN. PATIENT GIVEN PRN PHENERGAN PER MD ORDERS.
[2020-08-07 20:29] VITALS: BP 136/52; TEMP 98.5
--- NOTE | 2020-08-07 20:50 | NUR ---
AT BEDSIDE AT THIS TIME. PT IS IN A HIGH FOWLERS POSITION AND COMPLAINING OF MUSCLE SPASM PAIN AT THIS TIME.
--- NOTE | 2020-08-07 20:56 | NUR ---
FLEXIRIL GIVEN AT THIS TIME FOR MUSCLE SPASMS. PT TOLERATED WELL.
--- NOTE | 2020-08-08 01:30 | NUR ---
PT IS RESTING QUIETLY WITH SIDE RAILS UP TIMES THREE AT THIS TIME. NO NEEDS AT THIS TIME. NO NAD NOTED. LOWER EXTREMITIES ELEVATED.
[2020-08-08 08:00] VITALS: BP 139/50; TEMP 98.1
--- NOTE | 2020-08-08 12:30 | NUR ---
OT IS IN THE ROOM WITH PT MOVING PT TO THE BEDSIDE COMMODE. PT WAS MOVED TO THE BEDSIDE COMMODE USING THE SLIDING BOARD AND A SHEET. PT IS ABLE TO SLIDE ACROSS THE BOARD BY SCOOTING ACROSS THE BOARD. PT ONLY NEEDS A LITTLE ASSISTANCE WITH TRANSFER TO THE BEDSIDE COMMODE.
--- NOTE | 2020-08-08 17:21 | NUR ---
PT MOVED TO BEDSIDE COMMODE USING SLIDING BOARD AND SHEET WITH NO LITTLE ASSISTANCE FROM SOCIAL SCIENCES CHAIR. PT MOVED BACK TO BED FROM BEDSIDE COMMODE WITH NO ASSISTANCE. NAD WAS NOTED DURING TRANSFER. PIN SITE CARE HAS BEEN COMPLETED NOT REDNESS OR DRAINAGE NOTED.
[2020-08-08 20:00] VITALS: BP 139/47; TEMP 98.6
--- NOTE | 2020-08-08 20:00 | NUR ---
ENTERED PATIENT'S ROOM. PATIENT RESTING QUIETLY IN BED WATCHING TV. DENIES PAIN. C/O SWELLING TO LUE. ENCOURAGED TO KEEP ELEVATED MUCH POSSIBLE. NO OTHER CONCERNS OR COMPLAINTS VOICED. ASSISTED TO BSC WITH TRANSFER BOARD. PATIENT ONLY REQUIRED LIMITED ASSIST WITH TRANSFER. SMALL BM NOTED. TRANSFERRED BACK TO BED WITH NO ISSUES. RESPIRATIONS EVEN AND UNLABORED. NAD NOTED. BED LOCKED AND IN LOWEST POSITION. CALL LIGHT WITHIN REACH.
--- NOTE | 2020-08-09 06:10 | NUR ---
PATIENT RESTING QUIETLY IN BED. 0700 MEDICATIONS GIVEN. NO OTHER CONCERNS OR COMPLAINTS VOICED AT THIS TIME. BED LOCKED AND IN LOWEST POSITION. CALL LIGHT WITHIN REACH.
[2020-08-09 08:00] VITALS: BP 120/47; TEMP 98.6
--- NOTE | 2020-08-09 10:00 | NUR ---
PT TRANSFERED TO BEDSIDE COMMODE WITH SLIDING BOARD AND SHEET WITH NO ASSISTANCE. PT TRANSFERRED TO BED AND BACK TO WHEELCHAIR USING BOARD AND BEDSHEET WITH A LITTLE ASSISTANCE TO GET OVER THE WHEEL OF THE WHEELCHAIR. PT MOVED FROM WHEELCHAIR TO SHOWER CHAIR AND GAVE HERSELF A SHOWER WITH NO ASSISTANCE. WHEN BACK IN THE BED PT HELPED ASSIST IN DRESSING HERSELF. NAD IS NOTE DURING SHOWERING AND TRANSFER.
--- NOTE | 2020-08-09 11:55 | NUR ---
PT WAS EDUCATED ON DISCHARGE TEACHING, PT VERBALIZED UNDERSTANDING AND RECIEVED TWO SCRIPTS TO BE TAKEN TO THE PHARMACY FOR HER PRESCRIPTIONS. PT WAS TRANSERRED TO THE WHEELCHAIR VIA SLIDING BOARD AND SHEET WITH LITTLE ASSISTANCE. PT WAS DISCHARGED FROM THE HOSPITAL TO PERSONAL VEHICLE VIA WHEELCHAIR. PT'S WALKED ALONGSIDE CARRYING PERSONAL BELONGINGS. PT WAS ASSISTED INTO PERSONAL VEHICLE USING SLIDING BOARD AND SHEET. PT WAS ASSISTED BY GREEN BUILDING MATERIALS DISTRIBUTOR AND LIZ BRUCE PT. NAD WAS NOTED DURING DISCHARGE AND TRANSFERS.
--- NOTE | 2020-08-09 12:25 | NUR ---
Mrs. Carballo was scheduled for a home evaluation with therapy today at 12:00 PM, but changed her mind and decided to go home instead. Home evaluation was cancelled. Mrs. Carballo had previously stated she wanted [facility] during discharge planning discussions at the time of her admission to this center and she reiterated her preference today. Called [facility] at and they confirmed that they do provide services to her home location. Home health referral with PT and OT services was sent to fax number .
== END 2020-08-09 11:00 | disposition home or self-care (01) | DRG 948 ==
LOC: MED/SURG 16:20
PROVIDERS: Internal Medicine Endocrinology, Diabetes & Metabolism; ADMIT Internal Medicine; ATTEND Internal Medicine
DX: R53.1 Weakness (principal); N39.0 Urinary tract infection, site not specified; R62.7 Adult failure to thrive; Z47.89 Encounter for other orthopedic aftercare; E03.8 Other specified hypothyroidism; K21.9 Gastro-esophageal reflux disease without esophagitis; M81.8 Other osteoporosis without current pathological fracture; F32.9 Major depressive disorder, single episode, unspecified; G62.89 Other specified polyneuropathies; B96.29 Other Escherichia coli [E. coli] as the cause of diseases classified elsewhere
CPT/HCPCS: 36415; 80048; 81000; 87077; 87081; 87086; 87088; 87186; J2270; J2550